=== PATIENT | male | born 1955 | race Caucasian/White ===

== ENCOUNTER 2025-09-07 09:35 | Outpatient (REF) | payer MEDICARE, SELFPAY ==
--- NOTE | ~2025-09-07 | XR_ITS ---
EXAMINATION: XR CERVICAL SPINE CLINICAL INFORMATION: M50.90 - Cervical disc disorder, unspecified, unspecified cervical region COMPARISON: None available. TECHNIQUE: AP, swimmer's and lateral: Flexion, neutral, and extension view x-rays of the cervical spine. FINDINGS: There is moderate disc space narrowing at C4-5 and C5-6. There is mild narrowing at other disc levels. With flexion and extension, there is persistent reversal cervical lordosis and limited range of motion. C6-7 and C7-1 are obscured by overlapping bony and soft tissues. There is stable grade 1 retrolisthesis at C4-5. Facet sclerosis and narrowing is noted at C2-3, C4, and C4-5. 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 Electronically signed by: Doe Phillips MD 09/07/2025 11:47 AM EDT
== END 2025-09-07 09:36 | disposition home or self-care (01) ==
LOC: HO.HOSX 09:35
PROVIDERS: PCP Internal Medicine; Referring Provider Internal Medicine; Visit Provider Physician Assistant
DX: M50.90 Cervical disc disorder, unspecified, unspecified cervical region (principal)
CPT/HCPCS: 72050; 99202

== ENCOUNTER 2025-09-07 09:35 | Outpatient (AMB) | payer MEDICARE, SELFPAY ==
--- NOTE | 2025-09-07 09:40 | HO.SPINEOV ---
Vital Signs 09/07/25 10:08 Height 5 ft 11 in Weight 220 lb BMI 30.7 Intake Visit Reasons: severe canal stenosis with cord compression Intake Note: Mr. Conklin is here today c/o Back pain. MRI done at [facility]. Die Sinker Required: No Allergies No Known Allergies Allergy (Verified 09/07/25 10:09) Physical Exam Vital Signs: BMI result Body Mass Index 30.7 Assessment & Plan Assessment & Plan (1) Cervical disc disorder: Code(s): M50.90 - Cervical disc disorder, unspecified, unspecified cervical region Category: Medical Plan Dear Dr Hooper, Thank you for referring Mr Conklin to our office today. This is a very nice 69-year-old gentleman with a history of chronic neck pain mostly on the left side who underwent a cervical CT and then a follow up cervical MRI showing stenosis at C4-5 rate it as severe. The patient was sent today for a consultation. He currently denies any upper extremity or lower extremity tingling, numbness, loss of motor function bowel or bladder function, gait imbalance etc.. He does have 1 leg shorter than the other so naturally has a slight imbalance, but nothing that is noticeable in terms of causing frequent falls etc.. He has no loss of fine motor movement of his hands. He was sent today for evaluation to see if this is something that can just be monitored or if surgery needs to be done as a precaution. PMH: He has been a lifelong diabetic, type 1 but his A1c is very well controlled with an insulin pump, his last reading was 5.8, he has slightly elevated blood pressure, he takes losartan for that and it is generally well managed, history of depression, hypothyroidism. He has never had surgery. Denies any cardiovascular disease, strokes, bleeding disorders, blood clots, liver or kidney disease, cancer etc.. Social hx: He does not smoke, drink or use any recreational drugs Medications: Atorvastatin, losartan, bupropion, fluoxetine, Levoxyl, insulin pump Allergies: None Physical exam: Awake alert oriented no acute distress, he is able to stand up on his own independently walk down the hallway with a stable normal gait. Tandem gait testing did not reveal any instability. Motor examination reveals full strength of bilateral upper and lower extremities. No muscle wasting of the hands. Reflexes diminished if not absent in the upper and lower extremities. Imaging review: Cervical MRI done at [facility] reveals degenerative disc disease primarily at C4-5 where there is moderate to severe stenosis. There is no cord signal change seen to suggest acute myelopathy. Impression: 69-year-old male presents with incidentally found stenosis at C4-5, no symptoms. It is moderate to severe in his degree. There is no cord signal change to suggest acute myelopathy. They are generally 2 schools of thought about this. The 1st is that there could be some risk if he falls or has a trauma that he could develop neurological deficits, so preventative surgery is indicated. However, in the literature there is no evidence to support that this is actually true. Therefore Dr Saba takes the more conservative approach and instead of surgery we generally will do clinical follow-ups every 3 months for up to a year and then beyond if needed. If the patient develops symptoms of myelopathy, we can fix with an anterior cervical fusion . I educated the patient and showed him his MRI so he understands the plan and understands the reasons we are doing clinical follow-ups. Dr Saba has reviewed the images and agrees. We will get a baseline xray just in case he needs surgery down the road. Thank you for allowing us to care for your patient. The total time spent with this visit with this patient was 45 minutes reviewing history, physical exam, cervical imaging review, and implementation of treatment plan or further diagnostic testing Kolby Saba MD,PhD [facility] Orders: Orders XR cervical spine 4V Today M50.90 - Cervical disc disorder, unspecified, unspecified cervical region Coding Level of Care Code New Pt Level 4 (62976) Diagnoses Cervical disc disorder M50.90
[2025-09-07 10:08] VITALS: BMI 30.7
--- OUTSIDE RECORDS SUMMARY | 2025-09-07 10:35 | XMS_ITS | Clinical Summary ---
Author Organization [facility] Address [address] [place] [id number] Phone Care Team Providers Care Cycle Manager Name Role Phone Tonny Hooper MD Primary Care Provider [phone] Allergies No known active allergies Medications sildenafil (VIAGRA) 100 mg tablet Take 1 tablet by mouth daily as needed. Active simvastatin (ZOCOR) 10 MG tablet Take 1 tablet by mouth every evening. Active blood sugar diagnostic (ONETOUCH ULTRA TEST) Strp strips Test8 to 10 times a day Active Medication-Lupillo e Text IAV-[id number]-[id number]-Ca Gluc 325mg Tablet, Sig: as directed Orally Active subcutaneous insulin pump Misc as directed 2 Active insulin lispro (HUMALOG) 100 unit/mL injection vial as directed Subcutaneous Active cholecalcifero l (VITAMIN D3) 2,000 unit tablet as directed Orally A ctive levothyroxine (SYNTHROID, LEVOTHROID) 137 MCG tablet 1 tablet every morning on an empty stomach Orally Once a day Active lamoTRIgine 200 mg ODT 2 tablet on the tongue and allow to dissolve Orally Once a day Active Medication-Lupillo e Text Comfort Short Inf Set 23 /13mm Miscellaneous, Sig: as directed Active atorvastatin (LIPITOR) 20 MG tablet Take 1 tablet by mouth every morning. 3 Active buPROPion (WELLBUTRIN SR) 200 MG SR 12 hr tablet Take 1 tablet by mouth 2 (two) times a day. 3 Active NOVOLOG U-100 INSULIN ASPART 100 unit/mL injection vial INJECT UP TO 80 UNITS A DAY SUBCUTANEOUSLY VIA PUMP 3 Active losartan (COZAAR) 25 MG tablet 3 Active Active Problems No known active problems Encounters Date Type Department Care Team Description 06/28/2025 12:37 PM EDT - 06/28/2025 3:53 PM EDT Emergency [facility] [address] [place] [address] Discharge Disposition: Home or Self Care 06/28/2025 Procedure Pass [facility], Ct Scan - [facility] [address] [place] [address] 06/28/2025 Procedure Pass [facility], Ct Scan - [facility] [address] [place] [address] from Last 3 Months Social History Tobacco Use Types Packs/Day Years Used Date Smoking Tobacco: Never Smokeless Tobacco: Never Tobacco Cessation:Counseling Given: Not Answered Education Answer Date Recorded Are you interested in more education? Not on samara e 11/04/2023 Are you concerned about learning? Not on file 11/04/2023 No 11/04/2023 No 11/04/2023 Food Answer Date Recorded Within the past 6 months we worried whether our food would run out before we got money to buy more. Never True 06/28/2025 Within the past 6 months the food we bought just didn't last and we didn't have enough money to get more. Never True Residential Stability Answer Date Recor ded What is your housing situation today? I have dudley sing 06/28/2025 How many times have you move d in the past 12 months? Zero (I did not move) 06/28/2025 Paying for Meds Answer Date Recorded Do you have trouble paying for medicines? No 06/28/2025 Paying Utility Bills Answer Date Record ed Do you have trouble paying your heating or elect ricity bill? No 06/28/2025 Transportation Answer Date Recorded Has the lack of transportati on kept you from medical appointments or from getting medications? No 06/28/2025 Digital Access Answer Date Recorded No 06/28/2025 Yes 06/28/2025 Do you have reliable internet access at home? Ye s 06/28/2025 Do you have a device (e.g., phone, tablet, computer) with a working camera? Yes 06/28/2025 Intimate Partner Violence Answer Date R ecorded Are you denied basic needs s uch as food, clothing, or medical care? No 06/28/2025 In the past 12 months have y ou been in a relationship with a person who hurts, threatens, or tries to control you? No 06/28/2025 Are you denied basic needs s uch as food, clothing, or medical care? No 06/28/2025 In the past 12 months have y ou been in a relationship with a person who hurts, threatens, or tries to control you? No 06/28/2025 Sex and Gender Information Value Date Recorded Sex Assigned at Not on file Legal Sex Male 9:55 PM EDT Gender Identity Not on file Sexual Orientation Not on file Last Filed Vital Signs Vital Sign Reading Time Taken Comments Blood Pressure 158/98 06/28/2025 3:39 PM EDT Pulse 96 06/28/2025 3:39 PM EDT Temperature 36.9 C (98.4 F) 06/28/2025 3:39 PM EDT Respiratory Rate 16 06/28/2025 3:39 PM EDT Oxygen Saturation 100% 06/28/2025 3:39 PM EDT Inhaled Oxygen Concentration - - Weight 107.5 kg (237 lb) 06/28/2025 12:52 PM EDT Height 180.3 cm (5' 11 ) 06/28/2025 12:52 PM EDT Body Mass Index 33.05 06/28/2025 12:52 PM EDT Plan of Treatment Health Maintenance Due Date Last Done Comments LIPID PANEL 1955 TSH LEVEL 1955 DEPRESSION SCREENING 1967 HEPATITIS C SCREENING 1973 COLOGUARD 2000 FIT TEST 2000 FOBT 2000 SIGMOIDOSCOPY 2000 VIRTUAL COLONOSCOPY 2000 INFLUENZA VACCINE (#1) 2025 , 08/03/2022, 09/14/2021, Additional history exists COVID-19 VACCINE ( season) 2025 08/23/2023, 04/01/2023, 09/14/2022, Additional history exists COLONOSCOPY 12/04/2025 12/04/2015 COLORECTAL CANCER SCREENING 12/04/2025 CREATININE LEVEL 06/28/2026 06/28/2025 POTASSIUM LEVEL 06/28/2026 06/28/2025 SCREENING FOR DIABETES 06/28/2028 06/28/2025 RSV VACCINE (1 - 1-dose 75+ series) 2030 Adult Td,Tdap Booster 08/04/2032 08/04/2022 , 06/01/2011, 09/09/2004 ZOSTER VACCINES Completed 08/15/2019, 05/11/2019 PNEUMOCOCCAL VACCINES (50+ years) Completed 04/01/2023, 06/22/2019, 11/07/1996, Additional history exists SMOKING STATUS SCREENING (Once After 26 Yrs) Completed 11/04/2023 HEPATITIS A VACCINES Aged Out No long er eligible based on patient's age to complete this topic HIB VACCINES Aged Out No longer eligi ble based on patient's age to complete this topic MENINGOCOCCAL VACCINES (ACWY) Aged Out No longer eligible based on patient's age to complete this topic MENINGOCOCCAL VACCINES (B) Aged Out N o longer eligible based on patient's age to complete this topic Medical Devices Not on file Procedures Procedure Name Priority Date/Time Associated Diagnosis Comments MAGNESIUM STAT 06/28/2025 2:07 PM EDT TROPONIN STAT 06/28/2025 2:[address] CERVICAL SPINE WITHOUT CONTRAST Routine 06/28/2025 1:[address] HEAD WITHOUT CONTRAST Routine 06/28/2025 1:50 PM EDT POCT GLUCOSE Routine 06/28/2025 1:19 PM EDT ECG 12-LEAD STAT 06/28/2025 1:16 PM EDT TROPONIN STAT 06/28/2025 1:11 PM EDT BASIC METABOLIC PANEL STAT 06/28/2025 1:11 PM EDT CBC AND DIFFERENTIAL STAT 06/28/2025 1:11 PM EDT HM COLONOSCOPY FOR RESULT ENTRY ONLY Routine 12/04/2015 from Last 3 Months or Most Recently Relevant to Health Maintenance Results * Troponin (06/28/2025 2:07 PM EDT) Only the most recent of2 resultswithin the time period is included. Troponin-T, HS Gen5 13 0 - 14 ng/L [facility] Blood 06/28/2025 2:07 PM EDT 06/28/2025 2:27 PM EDT us Brittney Jules MD LAB BLOOD ORDERABLES Final Result Performing Organization Address City/[facility]/ZIP Co de Phone Number [address] [address] * Magnesium (06/28/2025 2:07 PM EDT) MAGNESIUM 1.9 1.6 - 2.6 mg/dL [facility] Blood 06/28/2025 2:07 PM EDT 06/28/2025 2:27 PM EDT Yun Lewis PA-C LAB BLOOD ORDERABLES Final Result Performing Organization Address [facility] Co de Phone Number [address] [address] * CT CERVICAL SPINE WITHOUT CONTRAST (06/28/2025 1:50 PM EDT) Anatomical Region Laterality Modality C-spine Computed Tomogra phy 06/28/2025 2:46 PM EDT Impressions 06/28/2025 3:02 PM EDT 1. No acute intracranial findings. 2. No cervical spine fracture or traumatic malalignment. 3. Severe spinal canal stenosis with mass effect on the spinal cord at C4-5. In the absence of referable symptoms, a nonemergent cervical spine MRI is recommended for further evaluation. Narrative 06/28/2025 3:[address] HEAD WITHOUT CONTRAST, CT CERVICAL SPINE WITHOUT CONTRAST TECHNIQUE: Multidetector-row CT of the head was performed without intravenous contrast using tailored dose modulation techniques. Images were reconstructed in the axial, coronal, and sagittal planes. Multidetector-row CT of the cervical spine was performed without intravenous contrast using tailored dose modulation techniques. Images were reconstructed in the axial, coronal, and sagittal planes. COMPARISON: FINDINGS: HEAD: Brain Parenchyma: No midline shift, mass effect, parenchymal hemorrhage, or evidence of acute territorial infarct. Ventricular System and Extra-Axial Spaces: No extra-axial fluid collections. Basal cisterns are patent. No hydrocephalus. Osseous and Extracranial Structures: Moderate mucosal thickening left ethmoid sinus and mild mucosal thickening elsewhere in the paranasal sinuses. Mastoid air cells and middle ear cavities are clear. No orbital abnormality. No fracture. CERVICAL SPINE: Alignment and Vertebrae: Reversal the cervical lordosis. Grade 1 anterolisthesis at C2-3. Grade 1 retrolisthesis at C4-5. Fusion of the fourth and C5 vertebral bodies and posterior elements. Vertebral bodies and posterior elements are intact. Discs and Endplates: Multilevel degenerative disc disease, most severe at C4-5. Facet arthropathy is most severe on the left at C2-3. Severe spinal canal stenosis at C4-5 with mass effect on the spinal cord due to a posterior disc osteophyte complex and retrolisthesis. Severe foraminal stenosis on the left at C2-3 and bilaterally at C4-5. Craniocervical Junction: Images posterior fossa structures are normal. Alignment is normal. No fracture. Soft Tissue: No prevertebral soft tissue thickening. Other Findings: A lipoma in the superior posterior lateral left neck is incidentally noted. Procedure Note Zack Castro MD - 06/28/2025 CT HEAD WITHOUT CONTRAST, CT CERVICAL SPINE WITHOUT CONTRAST TECHNIQUE: Multidetector-row CT of the head was performed without intravenouscontrast using tailored dose modulation techniques. Images werereconstructed in the axial, coronal, and sagittal planes. Multidetector-row CT of the cervical spine was performed withoutintravenous contrast using tailored dose modulation techniques. Imageswere reconstructed in the axial, coronal, and sagittal planes. COMPARISON: FINDINGS: HEAD: Brain Parenchyma: No midline shift, mass effect, parenchymal hemorrhage,or evidence of acute territorial infarct. Ventricular System and Extra-Axial Spaces: No extra-axial fluidcollections. Basal cisterns are patent. No hydrocephalus. Osseous and Extracranial Structures: Moderate mucosal thickening leftethmoid sinus and mild mucosal thickening elsewhere in the paranasalsinuses. Mastoid air cells and middle ear cavities are clear. No orbitalabnormality. No fracture. CERVICAL SPINE: Alignment and Vertebrae: Reversal the cervical lordosis. Grade 1anterolisthesis at C2-3. Grade 1 retrolisthesis at C4-5. Fusion of thefourth and C5 vertebral bodies and posterior elements. Vertebral bodiesand posterior elements are intact. Discs and Endplates: Multilevel degenerative disc disease, most severe atC4-5. Facet arthropathy is most severe on the left at C2-3. Severe spinalcanal stenosis at C4-5 with mass effect on the spinal cord due to aposterior disc osteophyte complex and retrolisthesis. Severe foraminalstenosis on the left at C2-3 and bilaterally at C4-5. Craniocervical Junction: Images posterior fossa structures are normal.Alignment is normal. No fracture. Soft Tissue: No prevertebral soft tissue thickening. Other Findings: A lipoma in the superior posterior lateral left neck isincidentally noted. IMPRESSION: 1. No acute intracranial findings. 2. No cervical spine fracture or traumatic malalignment. 3. Severe spinal canal stenosis with mass effect on the spinal cord atC4-5. In the absence of referable symptoms, a nonemergent cervical spineMRI is recommended for further evaluation. Yun Lewis PA-C IM CT XSPECIALTY ORD ERABLES Final Result * CT HEAD WITHOUT CONTRAST (06/28/2025 1:50 PM EDT) MGB IMG RECOMMENDATION COMMENT Severe spinal canal stenosis C4-5; spinal canal mass effect; mass effect spinal; mass effect spinal cord; mass effect C4-5 [facility] Anatomical Region Laterality Modality Head Computed Tomogra phy 06/28/2025 2:46 PM EDT Impressions 06/28/2025 3:02 PM EDT 1. No acute intracranial findings. 2. No cervical spine fracture or traumatic malalignment. 3. Severe spinal canal stenosis with mass effect on the spinal cord at C4-5. In the absence of referable symptoms, a nonemergent cervical spine MRI is recommended for further evaluation. Narrative 06/28/2025 3:[address] HEAD WITHOUT CONTRAST, CT CERVICAL SPINE WITHOUT CONTRAST TECHNIQUE: Multidetector-row CT of the head was performed without intravenous contrast using tailored dose modulation techniques. Images were reconstructed in the axial, coronal, and sagittal planes. Multidetector-row CT of the cervical spine was performed without intravenous contrast using tailored dose modulation techniques. Images were reconstructed in the axial, coronal, and sagittal planes. COMPARISON: FINDINGS: HEAD: Brain Parenchyma: No midline shift, mass effect, parenchymal hemorrhage, or evidence of acute territorial infarct. Ventricular System and Extra-Axial Spaces: No extra-axial fluid collections. Basal cisterns are patent. No hydrocephalus. Osseous and Extracranial Structures: Moderate mucosal thickening left ethmoid sinus and mild mucosal thickening elsewhere in the paranasal sinuses. Mastoid air cells and middle ear cavities are clear. No orbital abnormality. No fracture. CERVICAL SPINE: Alignment and Vertebrae: Reversal the cervical lordosis. Grade 1 anterolisthesis at C2-3. Grade 1 retrolisthesis at C4-5. Fusion of the fourth and C5 vertebral bodies and posterior elements. Vertebral bodies and posterior elements are intact. Discs and Endplates: Multilevel degenerative disc disease, most severe at C4-5. Facet arthropathy is most severe on the left at C2-3. Severe spinal canal stenosis at C4-5 with mass effect on the spinal cord due to a posterior disc osteophyte complex and retrolisthesis. Severe foraminal stenosis on the left at C2-3 and bilaterally at C4-5. Craniocervical Junction: Images posterior fossa structures are normal. Alignment is normal. No fracture. Soft Tissue: No prevertebral soft tissue thickening. Other Findings: A lipoma in the superior posterior lateral left neck is incidentally noted. Procedure Note Zack Castro MD - 06/28/2025 CT HEAD WITHOUT CONTRAST, CT CERVICAL SPINE WITHOUT CONTRAST TECHNIQUE: Multidetector-row CT of the head was performed without intravenouscontrast using tailored dose modulation techniques. Images werereconstructed in the axial, coronal, and sagittal planes. Multidetector-row CT of the cervical spine was performed withoutintravenous contrast using tailored dose modulation techniques. Imageswere reconstructed in the axial, coronal, and sagittal planes. COMPARISON: FINDINGS: HEAD: Brain Parenchyma: No midline shift, mass effect, parenchymal hemorrhage,or evidence of acute territorial infarct. Ventricular System and Extra-Axial Spaces: No extra-axial fluidcollections. Basal cisterns are patent. No hydrocephalus. Osseous and Extracranial Structures: Moderate mucosal thickening leftethmoid sinus and mild mucosal thickening elsewhere in the paranasalsinuses. Mastoid air cells and middle ear cavities are clear. No orbitalabnormality. No fracture. CERVICAL SPINE: Alignment and Vertebrae: Reversal the cervical lordosis. Grade 1anterolisthesis at C2-3. Grade 1 retrolisthesis at C4-5. Fusion of thefourth and C5 vertebral bodies and posterior elements. Vertebral bodiesand posterior elements are intact. Discs and Endplates: Multilevel degenerative disc disease, most severe atC4-5. Facet arthropathy is most severe on the left at C2-3. Severe spinalcanal stenosis at C4-5 with mass effect on the spinal cord due to aposterior disc osteophyte complex and retrolisthesis. Severe foraminalstenosis on the left at C2-3 and bilaterally at C4-5. Craniocervical Junction: Images posterior fossa structures are normal.Alignment is normal. No fracture. Soft Tissue: No prevertebral soft tissue thickening. Other Findings: A lipoma in the superior posterior lateral left neck isincidentally noted. IMPRESSION: 1. No acute intracranial findings. 2. No cervical spine fracture or traumatic malalignment. 3. Severe spinal canal stenosis with mass effect on the spinal cord atC4-5. In the absence of referable symptoms, a nonemergent cervical spineMRI is recommended for further evaluation. Yun Lewis PA-C IMG CT HEAD/NECK Millie l Result * (ABNORMAL) POCT Glucose (06/28/2025 1:19 PM EDT) Glucose, POCT 120(H) 70 - 100 mg/dL [facility] 06/28/2025 1:19 PM EDT 06/28/2025 3:47 PM EDT us Unknown Unknown MD POINT OF CARE TEST ORDERABLES Final Result Performing Organization Address [facility] de Phone Number [facility] [address] [place] [address] * ECG 12-LEAD (06/28/2025 1:16 PM EDT) Ventricular Rate EKG/MIN 82 BPM [facility] Atrial Rate 82 BPM [facility] MT Interval 154 ms [facility] QRS Duration 90 ms [facility] QT Interval 394 ms [facility] QTC Interval 460 ms [facility] P [place] 39 degrees [facility] R Wave [place] 31 degrees [facility] T Wave [place] 16 degrees [facility] 06/28/2025 1:16 PM EDT 06/28/2025 3:55 PM EDT Narrative [facility] - 06/28/2025 3:55 PM EDT Normal sinus rhythm Normal ECG When compared with ECG of 10-Jan-2016 16:50, T wave inversion now evident in Inferior leads QT has lengthened Confirmed by Maldonado MELTON ([id number]) on 06/28/2025 3:55:27 PM us Brittney Jules MD ECG ORDERABLES Final Resul t Performing Organization Address City/[facility] Co de Phone Number [email or web address] * CBC and differential (06/28/2025 1:11 PM EDT) WBC 7.65 4.00 - 11.00 K/uL [facility] RBC 4.87 4.50 - 5.90 M/uL [facility] HGB 14.6 13.5 - 17.5 g/dL [facility] HCT 45.3 41.0 - 53.0 % [facility] PLT 211 150 - 450 K/uL [facility] MCV 93.0 80.0 - 100.0 fL [facility] MCH 30.0 27.0 - 31.0 pg [facility] MCHC 32.2 32.0 - 36.0 g/dL [facility] RDW 13.7 11.5 - 14.5 % [facility] MPV 11.0 8.4 - 12.0 fL [facility] NRBC 0.00 0.00 /100 WBCs [facility] ABSOLUTE NRBC 0.00 0.00 K/uL [facility] DIFF METHOD Auto [facility] NEUTS 67.5 48.0 - 76.0 % [facility] LYMPHS 21.6 18.0 - 41.0 % [facility] MONOS 6.5 4.0 - 11.0 % [facility] EOS 3.3 0.0 - 5.0 % [facility] BASOS 0.7 0.0 - 1.5 % [facility] Granulocytes, immature (%) 0.4 0.0 - 0.9 % [facility] ABSOLUTE NEUTS 5.17 1.92 - 7.60 K/uL [facility] ABSOLUTE LYMPHS 1.65 0.72 - 4.10 K/uL [facility] ABSOLUTE MONOS 0.50 0.16 - 1.10 K/uL [facility] ABSOLUTE EOS 0.25 0.00 - 0.50 K/uL [facility] ABSOLUTE BASOS 0.05 0.00 - 0.15 K/uL [facility] Granulocytes, immature 0.03 0.00 - 0.09 K/uL [facility] Blood 06/28/2025 1:11 PM EDT 06/28/2025 1:17 PM EDT us Brittney Jules MD LAB BLOOD ORDERABLES Final Result [facility] [address] [place] [address] * (ABNORMAL) Basic metabolic panel (06/28/2025 1:11 PM EDT) SODIUM 145 133 - 146 mmol/L [facility] CHLORIDE 109(H) 96 - 108 mmol/L [facility] POTASSIUM 4.0 3.3 - 5.1 mmol/L [facility] CO2 21 21 - 35 mmol/L [facility] BUN 11 6 - 19 mg/dL [facility] CREATININE 1.30 0.5 - 1.5 mg/dL [facility] GLUCOSE 130(H) 70 - 99 mg/dL [facility] CALCIUM 9.5 8.4 - 10.3 mg/dL [facility] EGFR 59(L) >59 mL/min/1.7 3m2 [facility] Comment:Estimated glomerular filtration rate calculated using the CKD-EPI refit equation. ANION GAP 19 10 - 20 mmol/L [facility] Blood 06/28/2025 1:11 PM EDT 06/28/2025 1:17 PM EDT Brittney Jules MD LAB BLOOD ORDERABLES Final Result [address] [address] * COLONOSCOPY FOR RESULT ENTRY ONLY (12/04/2015) Colonoscopy Repeat in 10 years Historical Provider HEALTH MAINTENANCE Final Result from Last 3 Months or Most Recently Relevant to Health Maintenance [place] [id number] [employer] MEDEX SUPPLEMENT MEDICARE PART A & B [employer] MEDEX SUPPLEMENT MEDICARE PART A & B [employer] MEDEX SUPPLEMENT MEDICARE PART A & B [facility] MEDEX SUPPLEMENT MEDICARE PART A & B [email or web address] MEDEX SUPPLEMENT MEDICARE PART A & B [employer] MEDEX SUPPLEMENT Care Teams Cycle Manager Relationship Specialty Start Date End Date Tonny Hooper MD [address] [place] [phone] [email or web address] PCP - General Internal Medicine 11/04/23 Additional Source Comments The information contained in this document represents components of the legal health record. It is not the complete legal health record.[facility]
--- OUTSIDE RECORDS SUMMARY | 2025-09-07 10:35 | XMS_ITS | Encounter Summary ---
Author Organization [facility] Address [address] [place] [phone] Phone Care Team Providers Care Cigar Packer And Shader Name Role Phone Tonny Hooper MD Primary Care Provider +1- [phone] Encounter Details Date Type Department Care Team (Late st Contact Info) Description 02/28/2025 Procedure Pass [facility], Ct Scan - [address] [address] Social History Tobacco Use Types Packs/Day Years Used Date Smoking Tobacco: Never Smokeless Tobacco: Never Education Answer Date Recorded Are you interested in more education? Not on samara e 11/04/2023 Are you concerned about learning? Not on file 11/04/2023 No 11/04/2023 No 11/04/2023 Digital Access Answer Date Recorded No 11/04/2023 No 11/04/2023 Reliable internet access at home? Not on file 11/04/2023 Device with a working camera? Not on file Sex and Gender Information Value Date Recorded Sex Assigned at Not on file Legal Sex Male 9:55 PM EDT Gender Identity Not on file Sexual Orientation Not on file documented as of this encounter Plan of Treatment Not on file documented as of this encounter Visit Diagnoses Not on filedocumented in this encounter Care Teams Cigar Packer And Shader Relationship Specialty Start Date End Date Tonny Hooper MD [address] [place] [id number] PCP - General Internal Medicine 11/04/23 documented as of this encounter Additional Source Comments The information contained in this document represents components of the legal health record. It is not the complete legal health record.[facility]
--- OUTSIDE RECORDS SUMMARY | 2025-09-07 10:36 | XMS_ITS | Encounter Summary ---
Author Organization [facility] Address [address] [facility] [address] [place] [address] Phone Care Team Providers Care Chair Frame Builder Name Role Phone Tonny Hooper MD Primary Care Provider [phone]- [phone] Reason for Referral * MRI/CAT Scan - Closed Specialty Diagnoses / Procedures Referred By Contac t Referred To Contact Radiology Diagnoses Liver disease, unspecified Procedures MRI Abdomen Tonny Hooper MD [address] [place] [address] Phone: tel: fax: mailto: Referral ID Status Reason Start Date Expiration Date Visits Re quested Visits Authorized [id number] Closed 03/13/2025 03/13/2026 1 1 Encounter Details Date Type Department Care Team (Latest Contact Info) Description 03/13/2025 Transcribe Orders Virtual Department [address] [place] [address] Tonny Hooper MD [address] [place] [phone] [email or web address] Liver disease, unspecified (Primary Dx) Social History Tobacco Use Types Packs/Day Years [...] on file documented as of this encounter Results * MRI ABDOMEN (LIVER) WITH AND WITHOUT CONTRAST (04/08/2025 12:38 PM EDT) MGB IMG RECOMMENDATION COMMENT cystic pancreatic lesions [facility] Anatomical Region Laterality Modality Abdomen Magnetic Resonan ce 04/11/2025 1:09 PM EDT Impressions 04/11/2025 1:23 PM EDT 1. Multiple hepatic hemangiomas measuring up to 2.2 cm. The largest correlates with the lesion seen on prior chest CT. No suspicious hepatic lesions. 2. Multiple pancreatic cystic lesions measuring up to 7 mm without suspicious features. Leading differential is intraductal papillary mucinous neoplasm. Follow-up MRI/MRCP in 12 months recommended to reevaluate. RECOMMEND: MRI abdomen between 12 months and 13 months for cystic pancreatic lesions. Follow-up recommendations were communicated and documented using a closed loop communication system. Narrative 04/11/2025 1:23 PM EDT MRI ABDOMEN (LIVER) WITH AND WITHOUT CONTRAST Referring clinician's provided indication for this examination in Epic: Outside Radiology Order; liver lesion TECHNIQUE: Multiplanar MR imaging of the abdomen was performed using T1, T2, fat saturated, and diffusion weighted techniques. Dynamic multiphase imaging was also performed after administration of an intravenous gadolinium contrast agent. COMPARISON: Chest CT 03/07/2025 FINDINGS: Lower Chest: No effusions. Liver: There is a 2.2 cm T2 hyperintense right hepatic lobe lesion (3:27), correlating with the lesion described on prior CT chest. This is T1 hypointense and demonstrates discontinuous peripheral nodular enhancement that progressively fills in over time (10:76). Findings are consistent with hepatic hemangioma. An adjacent hemangioma in the more inferior right hepatic lobe is also noted with the same imaging characteristics measuring 2.0 cm (3:29). There is also a hemangioma left hepatic lobe measuring 1.0 cm (10:38). No suspicious enhancing hepatic lesions. Biliary: No biliary ductal dilatation. Spleen: No splenomegaly or focal lesion. Pancreas: Multiple pancreatic cystic lesions are present, the largest measures 7 mm in the pancreatic body (2:21). Others measure 3 to 4 mm, as seen on series 3, images 29 and 19. No main ductal dilatation. No suspicious enhancement. Adrenal Glands: No nodules. Kidneys/Ureters: No hydronephrosis or enhancing renal lesion. Bowel: No dilatation or wall thickening. Peritoneum/Retroperitoneum: No suspicious free fluid in the abdomen. Lymph Nodes: No suspicious enlarged abdominal lymph nodes. Vessels: No abdominal aortic aneurysm. Patent portal vein. Bones/Soft Tissues: No focal marrow replacing lesions. Procedure Note Terrance Lynch MD - 04/11/2025 MRI ABDOMEN (LIVER) WITH AND WITHOUT CONTRAST Referring clinician's provided indication for this examination in Epic:Outside Radiology Order; liver lesion TECHNIQUE: Multiplanar MR imaging of the abdomen was performed using T1,T2, fat saturated, and diffusion weighted techniques. Dynamic multiphaseimaging was also performed after administration of an intravenousgadolinium contrast agent. COMPARISON: Chest CT 03/07/2025 FINDINGS: Lower Chest: No effusions. Liver: There is a 2.2 cm T2 hyperintense right hepatic lobe lesion (3:27),correlating with the lesion described on prior CT chest. This is [id number] and demonstrates discontinuous peripheral nodular enhancementthat progressively fills in over time (10:76). Findings are consistentwith hepatic hemangioma. An adjacent hemangioma in the more inferior righthepatic lobe is also noted with the same imaging characteristics measuring2.0 cm (3:29). There is also a hemangioma left hepatic lobe measuring 1.0cm (10:38). No suspicious enhancing hepatic lesions. Biliary: No biliary ductal dilatation. Spleen: No splenomegaly or focal lesion. Pancreas: Multiple pancreatic cystic lesions are present, the largestmeasures 7 mm in the pancreatic body (2:21). Others measure 3 to 4 mm, asseen on series 3, images 29 and 19. No main ductal dilatation. Nosuspicious enhancement. Adrenal Glands: No nodules. Kidneys/Ureters: No hydronephrosis or enhancing renal lesion. Bowel: No dilatation or wall thickening. Peritoneum/Retroperitoneum: No suspicious free fluid in the abdomen. Lymph Nodes: No suspicious enlarged abdominal lymph nodes. Vessels: No abdominal aortic aneurysm. Patent portal vein. Bones/Soft Tissues: No focal marrow replacing lesions. IMPRESSION: 1. Multiple hepatic hemangiomas measuring up to 2.2 cm. The largestcorrelates with the lesion seen on prior chest CT. No suspicious hepaticlesions. 2. Multiple pancreatic cystic lesions measuring up to 7 mm withoutsuspicious features. Leading differential is intraductal papillarymucinous neoplasm. Follow-up MRI/MRCP in 12 months recommended toreevaluate. RECOMMEND: MRI abdomen between 12 months and 13 months for cysticpancreatic lesions. Follow-up recommendations were communicated and documented using a closedloop communication system. Tonny Hooper MD IMG MR ABDOMEN Final Resu lt documented in this encounter Visit Diagnoses Diagnosis Liver disease, unspecified- Primary Liver disease, unspecified documented in this encounter Care Teams Chair Frame Builder Relationship Specialty Start Date End Date Tonny Hooper MD [address] [place] [phone] [email or web address] PCP - General Internal Medicine 11/04/23 documented as of this encounter Additional Source Comments The information contained in this document represents components of the legal health record. It is not the complete legal health record.[facility]
--- OUTSIDE RECORDS SUMMARY | 2025-09-07 10:36 | XMS_ITS | Encounter Summary ---
Author Organization [facility] Address [address] [facility] [address] [place] [address] Phone Care Team Providers Care Manager Web Application Name Role Phone Tonny Hooper MD Primary Care Provider +1- [phone] Encounter Details Date Type Department Care Team (Late st Contact Info) Description 06/28/2025 Procedure Pass [facility], Ct Scan - [address] [id number] Social History Tobacco Use Types Packs/Day Years [...] on file documented as of this encounter Functional Status * Calculated C-SSRS Risk Score (Lifetime/Recent) Answer Date of Assessment Author No Risk Indicated 06/28/2025 12:54 PM EDT Cash Nielson RN * [place] Suicide Severity Rating Scale (Screener/Recent Self-Report) Question Answer Date of Assessment Author 1. Wish to be (Past 1 Month) No 06/28/2025 12:54 PM EDWARDOT Cash Nielson RN 2. Non-Specific Active Suicidal Thoughts (Past 1 Month) No 06/28/2025 12:54 PM EDWARDOT Cash Nielson RN 6. Suicidal Behavior (Lifetime) No 06/28/2025 12:54 PM EDT Cash Nielson RN documented as of this encounter Plan of Treatment Not on file documented as of this encounter Visit Diagnoses Not on filedocumented in this encounter Care Teams Manager Web Application Relationship Specialty Start Date End Date Tonny Hooper MD [address] [place] [phone] [email or web address] PCP - General Internal Medicine 11/04/23 documented as of this encounter Additional Source Comments The information contained in this document represents components of the legal health record. It is not the complete legal health record.[facility]
--- OUTSIDE RECORDS SUMMARY | 2025-09-07 10:36 | XMS_ITS | Encounter Summary ---
Author Organization [facility] Address [address] [facility] [address] [place] [address] Phone Care Team Providers Care [employer] Miner Name Role Phone Tonny Hooper MD Primary Care Provider +1- [phone] Encounter Details Date Type Department Care Team (Late st Contact Info) Description 03/13/2025 Procedure Pass [facility], [address] [id number] Social History Tobacco Use Types Packs/Day Years [...] on filedocumented in this encounter Care Teams [employer] Miner Relationship Specialty Start Date End Date Tonny Hooper MD [address] [place] [phone] PCP - General Internal Medicine 11/04/23 documented as of this encounter Additional Source Comments The information contained in this document represents components of the legal health record. It is not the complete legal health record.[facility]
--- OUTSIDE RECORDS SUMMARY | 2025-09-07 10:36 | XMS_ITS | Encounter Summary ---
Author Organization [facility] Address [address] [facility] [address] [place] [phone] Phone Care Team Providers Care Life Underwriter Name Role Phone Tonny Hooper MD Primary Care Provider +1- [phone] Encounter Details Date Type Department Care Team (Late st Contact Info) Description 06/28/2025 Procedure Pass [facility], Ct Scan - [address] [phone] Social History Tobacco Use Types Packs/Day Years [...] 12:54 PM EDT Cash Nielson RN * Coker Suicide Severity Rating Scale (Screener/Recent Self-Report) Question [...] on filedocumented in this encounter Care Teams Life Underwriter Relationship Specialty Start Date End Date Tonny Hooper MD [address] [place] [phone] [email or web address] PCP - General Internal Medicine 11/04/23 documented as of this encounter Additional Source Comments The information contained in this document represents components of the legal health record. It is not the complete legal health record.[facility]
== END 2025-09-07 10:59 | disposition home or self-care (01) ==
LOC: HO.HNS 09:36
PROVIDERS: PCP Internal Medicine; Referring Provider Internal Medicine; Visit Provider Physician Assistant
DX: M50.90 Cervical disc disorder, unspecified, unspecified cervical region (principal)
CPT/HCPCS: 99204

== ENCOUNTER → 2025-09-07 11:08 | Outpatient (BNV) | payer MEDICARE, SELFPAY | PROVIDERS: PCP Internal Medicine; Referring Provider Internal Medicine; Visit Provider Radiology Diagnostic Radiology | DX: M50.322 Other cervical disc degeneration at C5-C6 level (principal) | CPT/HCPCS: 72050 ==